=== PATIENT | male | born 1975 | race Caucasian/White ===

== ENCOUNTER 2018-06-04 23:10 | Emergency (ER) | payer OTHER, SELFPAY ==
[2018-06-04 23:10] VITALS: BP 160/95; PULSE 77; RESP 16; TEMP 36.3; O2SAT 99; BMI 28.2
--- NOTE | 2018-06-04 23:18 | RAD_ITS ---
STUDY: X-RAY - LEFT WRIST REASON FOR EXAM: Male, 42 years old. Fall, wrist pain. TECHNIQUE: 3 view(s) of the wrist were obtained. COMPARISON: None. FINDINGS: Normal visualized distal radius and ulna. Normal radiocarpal articulation. Normal distal radioulnar articulation. Normal carpal bones. Normal carpal articulations. Normal carpometacarpal articulation of the thumb. Normal second through fifth carpometacarpal articulations. Normal visualized metacarpal bones. The soft tissue structures are unremarkable. RAD/Wrist min 3 Views IMPRESSION: Normal x-ray examination of the wrist. Electronically Signed: Marimar Mesa MD at 23:45 EDT Tel , Service support ,
--- NOTE | 2018-06-04 23:22 | ED.VISSUMM ---
- ER Visit Summary Date of Service: 06/04/18 Chief Complaint: Wrist injury History of Present Illness: The patient is a 42 M presenting for evaluation secondary to a left wrist injury. Patient is right-hand dominant. Patient states that he was working on a truck trailer and suffered a fall on an outstretched hand. He reports that he tried to catch himself with his left hand on the ground and suffered a hyperextension injury to his left wrist. He complains of mild to moderate pain worse with palpation and movement. He denies any other injuries. Physical Examination: Physical exam unremarkable except for upper extremity exam. No pain or limited range of motion of the shoulder or elbow. Patient complains of diffuse pain over the wrist with pain in the snuffbox but no real localization in that area. Patient has normal range of motion of the fingers. He reports decreased sensation in his fingertips, but has normal capillary refill normal pulses. Test Results: 3 view of the left wrist is negative per radiology interpretation Emergency Department Course and Treatment: Patient presented for evaluation secondary to a fall on the left wrist injury. X-rays were found to be negative. Presentation at this point likely is consistent with a sprain. Patient was recommended on rest ice elevation compression and ibuprofen Disposition: Discharge Impression: 1. Left wrist sprain secondary to fall at work This note was generated with [employer] ( [employer] ) dictation software. It may contain incorrect words, spelling, and punctuation that were not noted in review of the chart prior to signing ED Disposition - Plan for ED Patient: Disposition: Home or Assisted Living Chief Complaint: Upper Extremity Injury Diagnosis: Left wrist sprain Instructions: ED Sprain Wrist Referrals: [facility], [place] [GROUP OF PHYSICIANS] - As Needed
== END 2018-06-05 00:25 | disposition home or self-care (01) ==
PROVIDERS: Emergency Provider Emergency Medicine; Family Provider Family Medicine; PCP Family Medicine
DX: S63.502A Unspecified sprain of left wrist, initial encounter (principal); W18.39XA Other fall on same level, initial encounter; Y93.89 Activity, other specified; Y92.9 Unspecified place or not applicable; Y99.0 Civilian activity done for income or pay; I10 Essential (primary) hypertension
CPT/HCPCS: 73110; 99282

== ENCOUNTER 2024-05-05 20:41 | Emergency (ER) | payer OTHER, SELFPAY ==
[2024-05-05 20:42] VITALS: BP 128/79; PULSE 92; RESP 18; TEMP 36.2; O2SAT 96; BMI 27.8
--- NOTE | 2024-05-05 21:21 | EDS_ITS ---
HPI History of Present Illness Chief Complaint: Laceration Detail of Chief Complaint: Left wrist laceration Informant: patient Narrative Narrative: Patient presents to the emergency department after sustaining a left wrist laceration. Patient was at work cutting a strap with a pocket knife and accidentally lacerated his wrist. He is right-hand dominant. Unsure of his last tetanus shot. PFSH PFS Home Medications ?Medication ?Instructions ?Recorded ?Last Taken ?Type lisinopril 10 1 tab PO DAILY 08/27/13 Unknown History mg-hydrochlorothiazide 12.5 mg tablet (Zestoretic) Allergy/AdvReac Type Severity Reaction Status Date / Time amoxicillin Allergy Mild RASH Verified 05/05/24 21:07 Social History Smoking Status: Former smoker ROS ROS ED Review of Systems ROS Unobtainable: other Constitutional Constitutional ED: Reports lethargy; Denies chills, fever(s), sweats or weight loss Eyes Eyes: Denies blurry vision, change in vision or diplopia ENT ENT ED: Denies rhinorrhea or sore throat Cardiovascular Cardiovascular: Denies chest pain, orthopnea or racing heartbeat Respiratory/Chest Respiratory/Chest: Denies cough, dyspnea, dyspnea on exertion, orthopnea or sputum Gastrointestinal Gastrointestinal: Denies abdominal pain, diarrhea, nausea or vomiting Genitourinary Genitourinary ED: Denies dysuria, hematuria or urinary frequency Musculoskeletal Musculoskeletal: Denies arthralgias, back pain, myalgias or neck pain Integumentary Reports other Details: Left wrist laceration ; Denies abscess, Abrasions or rash Neurologic Neurologic: Denies headache(s) or weakness Psychiatric Psychiatric: Denies anxiety, depression or suicidal thoughts Endocrine Endocrinology: Denies polydipsia, polyphagia or polyuria Hematologic/Lymphatic Hematologic/Lymphatic: Denies easy bleeding, easy bruising or lymphadenopathy Allergic/Immunologic Allergic/Immunologic ED: Denies mouth swelling, tongue swelling or urticaria EXAM Physical Exam Const Vital Signs: 05/05/24 20:42 Temperature 97.2 F L Temperature Source Temporal Pulse Rate 92 Respiratory Rate 18 Blood Pressure 128/79 H Blood Pressure Mean 95 Pulse Ox 96 Oxygen Delivery Method Room Air Positive well nourished and well developed General Appearance ED: well developed and NAD HEENT Reports TM's clear and moist mucous membranes normocephalic and atraumatic; Negative for trauma or tenderness Tympanic Membrane ED: Yes TM's clear Eyes PERRL and EOMs intact bilaterally General Eye ED: Negative for pale conjunctiva or scleral icterus Neck no lymphadenopathy, supple and no JVD General: Negative for tenderness Chest Wall inspection of chest normal and palpation of chest normal Chest: Negative for tenderness Resp normal respiratory effort and clear to auscultation bilaterally Effort and Inspection: Negative for respiratory distress or pain with movement Auscultation: Negative for rhonchi, wheezes or diminished lung sounds Cardio regular rate, regular rhythm, S1 normal heart sound, S2 normal heart sound and no murmurs Peripheral Pulses: pulses 2+ throughout GI normal to inspection, nondistended, normoactive bowel sounds, soft to palpation, non-tender, non-distended and no masses Back/Spine no CVA tenderness and no thoracic nor lumbar tenderness Extremity Extremity Narrative: Left wrist-patient has a 2.5 cm laceration over the proximal portion of the volar left wrist. Almost flap-like laceration it is into the subcutaneous tissues. She had normal range of motion in flexion extension of all digits. He is neurovascular intact distally. No active bleeding. General Extremety ED: Negative for edema General Extremity: Negative for edema Neuro oriented x3, CN's II-XII intact bilaterally, no sensory deficits noted and gait normal Sensorium / Orientation: awake, alert, oriented to person, oriented to place and oriented to time Motor Exam: strength 5/5 throughout and strength abnormal Psych mental status grossly normal Skin no rashes or lesions noted and no wounds MDM MDM MDM Narrative Medical decision making narrative: Patient with left wrist laceration. Please see procedure note. Wound will be dressed after suture repair. Patient to have sutures removed in 10 days. He is advised to follow-up with [facility]. Patient to return if increasing pain, redness, swelling, purulent drainage, or condition worsening way. He will receive a tetanus booster. Procedures Lacerations Left wrist laceration: Length: 0.98 in Depth: Sub Q Shape: Flap Prep: Ang Laceration repair: Irrigated, Lidocaine and Local Irrigated (ml): 50 Number of Sutures/Ankit: 3 Suture Information: Ethilon, Simple and 5-0 Discharge Plan Triage Chief Complaint: Laceration ED Provider: Pawan Arenas Dx/Rx/DC Orders Clinical Impression: Laceration of left wrist Instructions: ED Laceration Extremity Prescriptions: No Action lisinopril-hydrochlorothiazide [Zestoretic] 1 TABLET tablet 1 tab PO DAILY Primary Care Provider: NOT,DEFINED Referrals: [facility] [Group of Physicians] - 10 Day for suture removal NOT,DEFINED [Primary Care Provider] - Print Language: Occitan Disposition Disposition: Home, Self Care
[2024-05-05] MEDS: Lidocaine 1% (20 ml mdv) 20 ML Vial 4 ML INFILT (21:28)
[2024-05-05] MEDS: Diphth,Pertuss(Acell),Tet Vac 0.5 ML Vial IM (21:29)
[2024-05-05 22:57] VITALS: BP 125/74; PULSE 85; RESP 16; TEMP 36.1; O2SAT 95
== END 2024-05-05 23:06 | disposition home or self-care (01) ==
LOC: ED 21:45
PROVIDERS: Emergency Provider Emergency Medicine; Visit Provider Emergency Medicine
DX: S61.512A Laceration without foreign body of left wrist, initial encounter (principal); Z87.891 Personal history of nicotine dependence; Z23 Encounter for immunization; X58.XXXA Exposure to other specified factors, initial encounter
CPT/HCPCS: 12001; 90471; 90715; 99283